=== PATIENT | female | born 1945 | race Caucasian/White ===

== ENCOUNTER 2017-05-20 19:44 | Emergency (ER) | payer OTHER ==
[2017-05-20 21:28] VITALS: BP 228/109
--- NOTE | 2017-05-20 22:19 | RAD ---
CLINICAL HISTORY: Left lower back pain x5 days the patient with known renal stones.. Relevant surgical history includes cholecystectomy and tubal ligation. COMPARISON: None TECHNIQUE: Noncontrast CT examination of the abdomen and pelvis from the lung bases through the initial tuberosities. FINDINGS: VISUALIZED LUNG BASES: The visualized lung bases are grossly clear. There is no pleural effusion. ABDOMEN AND PELVIS: Evaluation of the solid organs and vasculature is limited without intravenous contrast. Evaluation is further limited by motion artifact. At the right of midline upper abdomen there is a small defect allowing peritoneal fat to herniate into the subcutaneous tissue (image 46 of 178). In the right lobe the liver there is a fluid density cyst measuring 1.8 cm. Liver is otherwise homogenous in attenuation. The spleen, pancreas and adrenal glands are grossly normal in appearance. The gallbladder is normal. There are no calcifications in the right kidney. At the lower pole of the left kidney there is a 5 mm calcification. There is fullness of the bilateral collecting systems but no ely or hydronephrosis. There is no perinephric stranding. No calculi are seen in either ureter or in the urinary bladder. Evaluation of the gastrointestinal tract is limited without oral contrast. The small and large bowel are not distended.The patient's normal appendix is identified in the right lower quadrant with gas in the lumen (coronal image 48). There is no gross retroperitoneal or mesenteric lymphadenopathy. At the left inguinal region there is a top normal subcutaneous lymph node measuring 1.5 cm in diameter. There is mild infiltration of the subcutaneous fat overlying the left inguinal area. Coarse calcification is noted overlying the uterus. There is calcified atherosclerosis of the abdominal aorta extending into the bilateral iliac arteries. Degenerative changes include multilevel loss of intervertebral disc height involving the lower thoracic and lumbar spine.There are no sinister bone lesions. IMPRESSION: 1. There is coarse calcification at the lower pole of the left kidney without definite asymmetric hydronephrosis. No calculi are identified in either ureter or the urinary bladder. 2. Mildly enlarged left inguinal lymph node measures up to 1.5 cm in short axis diameter with mild surrounding subcutaneous infiltration of the fat. Please correlate to physical examination. 3. There are additional chronic, degenerative and iatrogenic findings described in the body of the report.
[2017-05-20] MEDS ORDERED: Ciprofloxacin TAB* 500 MG PO ONE (22:27)
--- NOTE | 2017-05-20 22:43 | UC ---
Complaint Female HPI - HPI Summary HPI Summary: Right flank pain has known Kidney Stonesn in left, does feel pressure and urgency with voiding--no fevers chills, nausea or vomiting - History Of Current Complaint Chief Complaint: UCGU Stated Complaint: BACK PAIN,POSS UTI Time Seen by Provider: 05/20/17 21:20 Hx Obtained From: Patient ?: No Onset/Duration: Gradual Onset, Still Present Timing: Constant Severity Initially: Mild Severity Currently: Moderate Pain Intensity: 5 Pain Scale Used: 0-10 Numeric Character: Dull Aggravating Factor(s): Nothing Alleviating Factor(s): Nothing Associated Signs And Symptoms: Positive: Negative - Allergies/Home Medications Allergies/Adverse Reactions: Allergies Allergy/AdvReac Type Severity Reaction Status Date / Time Sulfa Drugs Allergy Hives Verified 08/31/16 14:44 PMH/Surg Hx/FS Hx/Imm Hx Previously Healthy: No Cardiovascular History: Hypertension GI/ History: Kidney Stones Other History Of: Negative For: HIV, Hepatitis B, Hepatitis C - Surgical History Surgical History: Yes Surgery Procedure, Year, and Place: Tubal Ligation 1978. [place] 1997. Tonsilectomy - Family History Known Family History: Positive: Hypertension - Social History Occupation: Retired Lives: With Family Alcohol Use: None Substance Use Type: None Smoking Status (MU): Never Smoked Tobacco Have You Smoked in the Last Year: No Review of Systems Constitutional: Negative Skin: Negative Eyes: Negative ENT: Negative Respiratory: Negative Cardiovascular: Negative Gastrointestinal: Negative Genitourinary: Dysuria, Frequency, Urgency Motor: Negative Neurovascular: Negative Musculoskeletal: Negative Neurological: Negative Psychological: Negative All Other Systems Reviewed And Are Negative: Yes Physical Exam Triage Information Reviewed: Yes Appearance: Well-Appearing, No Pain Distress, Obese Vital Signs: Initial Vital Signs Temp 99 F 05/20/17 21:15 Pulse 92 05/20/17 21:15 Resp 18 05/20/17 21:15 BP 228/109 05/20/17 21:15 Pulse Ox 99 05/20/17 21:15 Vital Signs Reviewed: Yes Eye Exam: Normal Eyes: Positive: Conjunctiva Clear ENT Exam: Normal ENT: Positive: Normal ENT inspection, Hearing grossly normal, Pharynx normal. Negative: Nasal congestion, Nasal drainage, TMs normal, Trismus, Muffled/hoarse voice Dental Exam: Normal Neck exam: Normal Neck: Positive: Supple, Nontender Respiratory Exam: Normal Respiratory: Positive: Chest non-tender, Lungs clear, Normal breath sounds, No respiratory distress, No accessory muscle use Cardiovascular Exam: Normal Cardiovascular: Positive: RRR, No Murmur, Pulses Normal, Brisk Capillary Refill Abdominal Exam: Normal Abdomen Description: Positive: Nontender, No Organomegaly, Soft. Negative: CVA Tenderness (R), CVA Tenderness (L) Bowel Sounds: Positive: Present Musculoskeletal Exam: Normal Musculoskeletal: Positive: Strength Intact, ROM Intact, No Edema Neurological Exam: Normal Neurological: Positive: Alert, Muscle Tone Normal Psychological Exam: Normal Skin Exam: Normal Diagnostics - Laboratory Diagnostic Studies Completed/Ordered: (+) leuks and blood Complaint Female Dx - Course Course Of Treatment: cipro, increase fluids, follow with urology as planned, follow bp and swollen lymphnode with pcp this week - Differential Dx/Diagnosis Differential Diagnosis/HQI/PQRI: Renal Colic, Ureteral Stone, Urinary Tract Infection Provider Diagnoses: UTI, Hypertension in poor control, lymphadenopathy Discharge - Discharge Plan Condition: Stable Disposition: HOME Prescriptions: Ciprofloxacin TAB* [Cipro 500 MG TAB*] 500 mg PO BID #5 tab Patient Education Materials: Urinary Tract Infection in Women (ED), Lymphadenopathy (ED), Hypertension (ED) Referrals: Lanre Arriola MD [Primary Care Provider] - 1 Week
--- NOTE | 2017-05-22 23:02 | UC ---
Progress - Progress Note Progress Note: 05/22/17 23:00. Urine culture was positive for >100,000 e.coli. the sensitivity is pending. pt was discharged on Cipro.
== END 2017-05-20 22:38 | disposition home or self-care (01) ==
LOC: UCEAST 19:44
DX: N39.0 Urinary tract infection, site not specified (principal); B96.20 Unspecified Escherichia coli [E. coli] as the cause of diseases classified elsewhere; R59.1 Generalized enlarged lymph nodes; I10 Essential (primary) hypertension; E66.9 Obesity, unspecified; Z87.442 Personal history of urinary calculi; Z88.2 Allergy status to sulfonamides
CPT/HCPCS: 74176; 81003; 87077; 87086; 87186; 99212; A9270-GY; G0463